=== PATIENT | female | born 1990 | race African-American/Black ===

== ENCOUNTER 2019-06-09 04:03 | Emergency (ER) | payer SELFPAY ==
[2014-03-26 22:18] VITALS: BP 98/57
[~2019-06-09 04:03] MED LIST: DOXY100T PO; METHERGINE PO; NAPR-677 PO; OXYC1TAB15 PO
== END 2019-06-09 04:27 | disposition left against medical advice (07) ==
LOC: ER 04:03
DX: K08.89 Other specified disorders of teeth and supporting structures (principal); Z53.21 Procedure and treatment not carried out due to patient leaving prior to being seen by health care provider